=== PATIENT | female | born 1990 | race Caucasian/White ===

== ENCOUNTER → 2018-02-22 11:45 | Outpatient (CLI) | payer MEDICAID, SELFPAY ==
--- NOTE | 2018-02-22 11:53 | XR_ITS ---
XR chest 2V HISTORY: Cough and congestion, fever, smoker ITS.REASON: BRONCHITIS ORDERING PHYSICIAN: Tatiana Iverson PATIENT AGE: 27 years COMPARISON: None FINDINGS: The cardiomediastinal silhouette and pulmonary vascularity are within normal limits. No lobar consolidation or collapse. On the lateral view there is an 8 mm nodular opacity overlying the injury aspect of the heart not readily. On the frontal view. Possibly in the left hilar region. There is hyperinflation with prominent anterior clear space. No acute bony anomalies. IMPRESSION: Hyperinflation with prominent anterior clear space consistent with small airway disease which may be seen with bronchitis or asthma or smoking related lung disease. 8 mm nodular opacity overlies the intraaspect of the heart indeterminate. Consider follow-up to confirm stability. Unenhanced CT may better characterize.
== END ==
PROVIDERS: PCP Nurse Practitioner Family; Visit Provider Nurse Practitioner Family
DX: J20.9 Acute bronchitis, unspecified (principal)
CPT/HCPCS: 71046

== ENCOUNTER 2022-09-24 18:12 | Emergency (ER) | payer MEDICAID, SELFPAY ==
[2022-09-24 18:14] VITALS: BP 136/80; PULSE 108; RESP 18; TEMP 37; O2SAT 100; BMI 21.4
[2022-09-24 19:00] VITALS: BP 121/52; PULSE 100; O2SAT 99
--- NOTE | 2022-09-24 19:43 | HMH.EDGENADL ---
Discharge Plan Disposition Patient Disposition: Home, Self-Care Condition: Good Prescriptions Prescriptions: New cephalexin 500 mg capsule 500 mg PO Q6H Qty: 40 0RF ibuprofen 600 mg tablet 600 mg PO Q6H PRN (Reason: moderate pain ) Qty: 20 0RF fluconazole [Diflucan] 150 mg tablet 150 mg PO DAILY Qty: 1 0RF Rx Instructions: administer on day 1 of therapy No Action amoxicillin-pot clavulanate 1 EACH tablet 1 tab PO Q12H Qty: 20 0RF Referrals Follow up/Referrals: Tatiana Iverson [Primary Care Provider] - See instructions Activity Restrictions/Add. Instructions Additional Instructions/Restrictions: Clean wound daily with soap and water, apply Neosporin and bandage. Once wound begins to heal and is no longer moist, you can discontinue dressings. Follow-up with primary care provider within 1 week for recheck. Return emergency department if the wound is worsening, swelling, red streaks, or fever. Clinical Impressions Clinical Impression: Brown recluse spider bite Instructions Patient Instructions: DI for Spider Bites Discharge ED Provider: Nimesh Howard General Adult HPI General Chief complaint: Wound/Laceration Stated complaint: bump on left hand Time Seen by Provider: 09/24/22 19:37 Mode of Arrival: Ambulatory Source of Information: Patient Limitations: No Limitations Description of Symptoms (Recalled from ER Triage Doc. by RN): PT REPORTS BITE TO LEFT HAND. BLISTERED AREA TO LEFT HAND/THUMB X 4 DAYS History of Present Illness HPI narrative: States that 4 days ago she developed a sore on her left hand in the region of the metacarpal of the thumb. Initially she said it look like a plantars wart with some black specks in it. It then developed a blister and then the blister ruptured and now she has an ulcerated area. She has pain that radiates up her arm. No fever. She suspects she got bit by a brown recluse spider, but did not see anything bite her. Tetanus immunization is up-to-date, 2 months ago. No chronic medical problems. Related Data Previous Rx's Medication Instructions Recorded amoxicillin 875 mg-potassium 1 tab PO Q12H #20 tabs 07/19/18 clavulanate 125 mg tablet cephalexin 500 mg capsule 500 mg PO Q6H #40 caps 09/24/22 fluconazole 150 mg tablet 150 mg PO DAILY for yeast 09/24/22 (Diflucan) infection 1 dose #1 tab ibuprofen 600 mg tablet 600 mg PO Q6H PRN moderate pain 09/24/22 #20 tabs Allergies Allergy/AdvReac Type Severity Reaction Status Date / Time latex Allergy Unknown Verified 07/19/18 17:26 [facility] Disclaimer: The information contained in this section may have been updated after the patient was seen, as this information can be updated by other users. Social History Smoking Status: Current every day smoker tobacco type: cigarettes alcohol intake: never Travel in the last 8 weeks: None ROS Obtained: Yes Systems reviewed as appropriate & no additional complaints except as documented Constitutional Constitutional: Denies fever(s) and Denies weakness Musculoskeletal Musculoskeletal: Denies numbness Integumentary/Breasts Skin/Breast: Reports as per HPI and Reports wounds Neurologic Neurologic: Denies numbness and Denies weakness Physical Exam General General appearance: alert and in no apparent distress Chest Chest inspection: Present normal inspection and symmetric chest wall rise Respiratory Respiratory exam: Absent respiratory distress Cardiovascular Cardiovascular exam: Present regular rate Expanded Upper Extremity Exam Left: Hand L/R back image: 1. 2.5 cm diameter partial-thickness ulceration with ruptured vesicle tissue present. Serous drainage. No purulence or odor. No abscess. No surrounding cellulitis. No lymphangitis. No deep structure exposure. Neurological Exam Neurological exam: Present alert and oriented X3 Psychiatric Psychiatric exam: Present normal affect and normal mood Skin Skin exa
[2022-09-24 19:55] VITALS: BP 120/55; PULSE 100; RESP 18; TEMP 36.6; O2SAT 98
== END 2022-09-24 20:01 | disposition home or self-care (01) ==
PROVIDERS: Emergency Provider Emergency Medicine; PCP Nurse Practitioner Family
DX: T63.331A Toxic effect of venom of brown recluse spider, accidental (unintentional), initial encounter (principal); F17.210 Nicotine dependence, cigarettes, uncomplicated; Z79.1 Long term (current) use of non-steroidal anti-inflammatories (NSAID); Z79.899 Other long term (current) drug therapy
CPT/HCPCS: 99283

== ENCOUNTER 2023-09-19 10:48 | Emergency (ER) | payer MEDICAID, SELFPAY ==
[2023-09-19 12:00] VITALS: BP 124/68; PULSE 67; RESP 18; TEMP 37.2; O2SAT 98; BMI 25.7
[2023-09-19 12:33] LABS: UTC Influenza A Antigen Negative (Negative); UTC Influenza B Antigen Negative (Negative)
--- NOTE | 2023-09-19 12:33 | EXP.UTC ---
Discharge Plan Disposition Patient Disposition: Home, Self-Care Condition: Good Prescriptions Prescriptions: New ondansetron 4 mg tablet,disintegrating 4 mg PO Q8H PRN (Reason: nausea and vomiting) Qty: 7 0RF Referrals Follow up/Referrals: Tatiana Iverson [Primary Care Provider] - See instructions Activity Restrictions/Add. Instructions Additional Instructions/Restrictions: Monitor temperature. Seek treatment if fever develops. Follow-up immediately if new or worse symptoms worsen or no noticeable improvement over 48 hours. Increase fluids such as water, Gatorade, Powerade, juice or Pedialyte with limited formula/dietary in children No food is okay as long as you are drinking. Once ready to eat start bland such as bananas, rice, applesauce, toast. Contagious until no diarrhea, vomiting, fever times 48 hours without medication Avoid antidiarrheals unless told otherwise. Best to let the virus run its course. Follow-up immediately for new or worsening symptoms or no noticeable improvement over the next 48 hours. Clinical Impressions Clinical Impression: Nausea & vomiting Qualifiers: Vomiting type: unspecified Qualified Code(s): R11.2 - Nausea with vomiting, unspecified Diarrhea Qualifiers: Diarrhea type: unspecified type Qualified Code(s): R19.7 - Diarrhea, unspecified Stand Alone Forms Stand Alone Forms: Work/School Release Instructions Patient Instructions: DI for Nausea -- Adult, DI for Vomiting -- Adult Discharge ED Provider: Lani ([facility])Iván [facility] [place] HPI General Stated complaint: vomiting,diarrhea,101 fever Mode of Arrival: Ambulatory Source of Information: Patient Limitations: No Limitations Time Seen by Provider: 09/19/23 12:33 Description of Symptoms (Recalled from Triage Doc. by RN): vomiting, diarrhea, cough, and LONG HEENT Symptoms (Recalled from RN notes): Yes Resp Symptoms (Recalled from RN notes): No Skin Symptoms (Recalled from RN notes): No MS Symptoms (Recalled from RN notes): No Functional Status (Recalled from RN notes): n/a History of Present Illness Provider Complaint: 33 yr old female presents for vomiting, diarrhea, cough, and LOGN Related Data Previous Rx's Medication Instructions Recorded ondansetron 4 mg disintegrating 4 mg PO Q8H PRN nausea and 09/19/23 tablet vomiting #7 tabs Allergies Allergy/AdvReac Type Severity Reaction Status Date / Time latex Allergy Unknown Verified 09/19/23 12:25 Worker's Comp Is this a Worker's Comp case?: No [facility] Disclaimer: The information contained in this section may have been updated after the patient was seen, as this information can be updated by other users. Social History , [employer]) Smoking Status: Current every day smoker tobacco type: cigarettes alcohol intake: never current occupational status: student Travel in the last 8 weeks: None ROS Obtained: Yes All systems reviewed & no additional complaints except as documented Constitutional Constitutional: Reports system reviewed and no additional complaints, except as documented and Reports as per HPI Eyes Eyes: Reports system reviewed and no additional complaints, except as documented ENT Ears, Nose, Mouth, and Throat: Reports system reviewed and no additional complaints, except as documented Cardiovascular Cardiovascular: Reports system reviewed and no additional complaints, except as documented Respiratory Respiratory: Reports system reviewed and no additional complaints, except as documented and Reports as per HPI Gastrointestinal Gastrointestingal: Reports system reviewed and no additional complaints, except as documented, as per HPI, diarrhea, nausea and vomiting Neurologic Neurologic: Reports system reviewed and no additional complaints, except as documented Endocrine Endocrine: Reports system reviewed and no additional complaints, except as documented Hematologic/Lymphatic Henatologic/Lymphatic: Reports sys
[2023-09-19 12:47] VITALS: BP 124/68; PULSE 67; RESP 18; TEMP 37.2; O2SAT 98
== END 2023-09-19 12:47 | disposition home or self-care (01) ==
PROVIDERS: Emergency Provider Nurse Practitioner Family; PCP Nurse Practitioner Family
DX: R51.9 Headache, unspecified (principal); R11.2 Nausea with vomiting, unspecified; R50.9 Fever, unspecified; R19.7 Diarrhea, unspecified; R05.9 Cough, unspecified; F17.210 Nicotine dependence, cigarettes, uncomplicated
CPT/HCPCS: 87804; 99204; 99212; G0463

== ENCOUNTER 2024-04-04 13:25 | Emergency (ER) | payer MEDICAID, SELFPAY ==
[2024-04-04 13:35] VITALS: BP 124/75; PULSE 66; RESP 18; TEMP 36.9; O2SAT 98; BMI 23.0
--- NOTE | 2024-04-04 13:45 | US_ITS ---
FINAL REPORT CLINICAL HISTORY: KNOTS (2) TO RIGHT [place] AREA FINDINGS: Limited sonographic images of the right carol[place] were obtained. The subcutaneous tissues appear mildly indurated and edematous. No mass or focal fluid collection identified. IMPRESSION: Nonspecific finding is as above. Reviewed, Interpreted and Dictated by Franklin Winston MD Transcribed by Maya Malhotra Authenticated and [facility]
--- NOTE | 2024-04-04 13:54 | ED_ITS ---
Discharge Plan Disposition Patient Disposition: Home, Self-Care Condition: Good Prescriptions Prescriptions: New amoxicillin 875 mg tablet 875 mg PO Q12H Qty: 20 0RF No Action cetirizine 10 mg tablet 10 mg PO DAILY Patient Comments: Take 1 tablet every day by oral route for 90 days. trazodone 150 mg tablet 150 mg PO HS Patient Comments: Take 1 tablet every day by oral route at bedtime for 90 days. buspirone 7.5 mg tablet 7.5 mg PO DAILY Patient Comments: Take 1 tablet every day by oral route for 90 days. omeprazole 20 mg capsule,delayed release(DR/EC) 20 mg PO DAILY Patient Comments: Take 1 capsule every day by oral route before meal(s) for 90 days. fluticasone propionate 50 mcg/actuation spray,suspension 1 spray INTRANASAL DAILY Patient Comments: instill 1 spray into each nostril once daily bupropion HCl 150 mg tablet extended release 24 hr 150 mg PO DAILY Patient Comments: Take 1 tablet every day by oral route for 90 days. Sublocade 300 mg/1.5 mL solution, extended rel syringe 100 mg SQ MONTHLY Referrals Follow up/Referrals: Tomeka Cheatham APRN [Primary Care Provider] - See instructions Activity Restrictions/Add. Instructions Additional Instructions/Restrictions: Drink plenty of fluids. Take ibuprofen for pain or fever. Take the medications as directed. Follow up with your regular doctor. GO TO THE ER FOR ANY WORSENING SYMPTOMS Clinical Impressions Clinical Impression: Erythema nodosum Instructions Patient Instructions: Erythema Nodosum, DI for Erythema Nodosum Discharge ED Provider: Nura Huizar [facility] General Stated complaint: painful knots on right leg Mode of Arrival: Ambulatory Source of Information: Patient Limitations: No Limitations Time Seen by Provider: 04/04/24 13:45 Description of Symptoms (Recalled from Triage Doc. by RN): PATIENT C/O 2 PAINFUL KNOTS TO RIGHT LOWER LEG THAT STARTED 3 WEEKS AGO. SHE STATES PAIN HAS GOTTEN WORSE AND IS WORSE WITH WEIGHT BEARING. NO KNOWN INJURY. NO KNOWN FEVERS. ROM TO RIGHT LEG AND FOOT WNL. PATIENT STATES SHE SAW HER PCP WHO OBTAINED X-RAYS BUT NO FURTHER WORKUP. HEENT Symptoms (Recalled from RN notes): No Resp Symptoms (Recalled from RN notes): No Skin Symptoms (Recalled from RN notes): No MS Symptoms (Recalled from RN notes): Yes Functional Status (Recalled from RN notes): WNL History of Present Illness Provider Complaint: She states that for the past 3 weeks she has had tender knots coming up around her right carolina bone on her lower leg. Related Data Home Medications Medication Instructions Recorded Confirmed buprenorphine 300 mg/1.5 mL 100 mg SQ MONTHLY 04/04/24 04/04/24 solution,exten.rel.subcutaneous syringe (Sublocade) bupropion HCl 150 mg 24 hr tablet, 150 mg PO DAILY 04/04/24 04/04/24 extended release buspirone 7.5 mg tablet 7.5 mg PO DAILY 04/04/24 04/04/24 cetirizine 10 mg tablet 10 mg PO DAILY 04/04/24 04/04/24 fluticasone propionate 50 1 spray intranasal DAILY 04/04/24 04/04/24 mcg/actuation nasal spray,suspension omeprazole 20 mg capsule,delayed 20 mg PO DAILY 04/04/24 04/04/24 release trazodone 150 mg tablet 150 mg PO HS 04/04/24 04/04/24 Previous Rx's Medication Instructions Recorded amoxicillin 875 mg tablet 875 mg PO Q12H #20 tabs 04/04/24 Allergies Allergy/AdvReac Type Severity Reaction Status Date / Time latex Allergy Unknown Verified 09/19/23 12:25 Worker's Comp Is this a Worker's Comp case?: No [facility] Disclaimer: The information contained in this section may have been updated after the patient was seen, as this information can be updated by other users. Medical History (Updated 04/04/24 @ 15:12 by Nura Huizar APRN) Depression Anxiety Surgical History (Updated 04/04/24 @ 13:44 by Leila Smith RN) History of tonsillectomy History of appendectomy History of tubal ligation Social History (Updated 09/19/23 @ 12:41 by Iván Garibay ([facility])BANDAR) Smoking Status: Current every day smoker tobacco type: cigarettes alcohol intake: never current occupational status: student Travel in the last 8 weeks: None ROS Obtained: Yes All systems reviewed & no additional complaints except as documented Constitutional Constitutional: Denies chills and Denies fever(s) Eyes Eyes: Denies eye discharge ENT Ears, Nose, Mouth, and Throat: Denies dizziness, Denies otalgia and Denies sore throat Cardiovascular Cardiovascular: Denies chest pain Respiratory Respiratory: Denies shortness of breath, Denies chest congestion, Denies cough, Denies stridor and Denies wheezing Gastrointestinal Gastrointestingal: Denies nausea or vomiting Musculoskeletal Musculoskeletal: Reports system reviewed and no additional complaints, except as documented and Denies arthralgias Integumentary/Breasts Skin/Breast: Reports as per HPI Neurologic Neurologic: Denies dizziness and Denies paresthesias Allergic/Immunologic Allergic/Immunologic: Denies wheezing Physical Exam General General appearance: alert and in no apparent distress Head Head exam: atraumatic, normocephalic and normal inspection Eye Eye exam: Present normal appearance, PERRL and EOMI ENT ENT exam: Present normal exam, normal oropharynx, mucous membranes moist, TM's normal bilaterally and normal external ear exam Neck Neck exam: Present normal inspection, full ROM and trachea midline; Absent meningismus or lymphadenopathy Chest Chest inspection: Present normal inspection and symmetric chest wall rise; Absent tenderness Respiratory Respiratory exam: Present normal lung sounds bilaterally; Absent respiratory distress Cardiovascular Cardiovascular exam: Present regular rate and normal rhythm; Absent JVD Abdominal Exam Abdominal exam: Present soft and normal bowel sounds; Absent distention, tenderness or guarding Extremities Exam Extremities exam: Present normal capillary refill; Absent calf tenderness Expanded Lower Extremity Exam Right: Knee exam: Present normal inspection, full ROM and knee extension intact; Absent tenderness Lower leg exam: Present full ROM and Achilles tendon intact; Absent tenderness, swelling, abrasion, laceration, ecchymosis, deformity, crepitus, dislocation, erythema, palpable cord or Homans' sign Ankle exam: Present normal inspection and full ROM; Absent tenderness Foot/toe exam: Present normal inspection and full ROM; Absent tenderness Neurovascular/Tendon exam: Present normal capillary refill, normal 2-point discrimination and normal fine/light touch; Absent pulse deficit, motor deficit, sensory deficit, tendon deficit, extremity cold to touch or pallor Gait: observed and normal Back Exam Back exam: Present normal inspection; Absent tenderness Neurological Exam Neurological exam: Present alert and oriented X3 Psychiatric Psychiatric exam: Present normal affect and normal mood Skin Skin exam: Present warm, dry, intact and normal color Lymphatic Lymphatic Findings: no adenopathy Medical Decision Making Medical Records Medical records reviewed: No I reviewed the patient's medical records. Stew Inquiry Pt receiving controlled substance: No Vital Signs: 04/04/24 13:35 Temperature 98.4 F Temperature Source Oral Pulse Rate [Left Brachial] 66 Respiratory Rate 18 Blood Pressure [Left Arm] 124/75 Blood Pressure Mean [Left Arm] 91 Blood Pressure Source [Left Arm] Automatic Cuff Blood Pressure Position [Left Arm] Sitting 02 Sat by Pulse Oximetry 98 Oxygen Delivery Method Room Air Lab Data 04/04/24 14:00 04/04/24 14:00 Orders (Tests/Meds): ORDERS Category Date Time Status US extremity RT limited Stat Exams 04/04/24 13:45 Ordered Antistreptolysin O Ab Stat Lab 04/04/24 13:49 Ordered Basic Metabolic Panel Stat Lab 04/04/24 13:49 Ordered Complete Blood Count Auto Diff Stat Lab 04/04/24 13:49 Ordered Erythrocyte Sedimentation Rate Stat Lab 04/04/24 13:49 Ordered
[2024-04-04 14:38] LABS: Blood Urea Nitrogen 15 mg/dl (7-17); Calcium 9.4 mg/dl (8.4-10.2); Carbon Dioxide 27 mmol/L (22.0-30.0); Chloride 102 mmol/L (98-107); Creatinine Clearance Estimated 91 mL/min (50-200); Estimated Glomerular Filt Rate 82 ml/min (>60); GFR (African American) 99 ML/MIN (>60); Glucose 90 mg/dl (74-100); Sodium 137 mmol/L (136-145)
[2024-04-04 14:51] LABS: Basophils % 0.6 % (0.1-2.0); Eosinophils # 0.1 K/mm3 (0.0-0.4); Eosinophils % 2.9 % (0.1-12.0); Hematocrit 37.9 % (37.0-47.0); Hemoglobin 13.2 g/dL (12.2-16.2); Lymphocytes # 1.6 K/mm3 (0.7-4.5); Lymphocytes % 33.1 % (10-50); Mean Corpuscular Hemoglobin 30.9 pg (27.0-31.2); Mean Corpuscular Volume 88.3 fl (81-99); Mean Platelet Volume 8.3 fl (7.4-10.4); Monocytes # 0.3 K/mm3 (0.1-1.0); Monocytes % 5.1 % (1.7-9.3); Neutrophils # 2.8 K/mm3 (1.8-7.8); Neutrophils % 58.3 % (37.0-80.0); Platelet Count 161 K/mm3 (142-424); Red Blood Count 4.29 M/mm3 (4.20-5.40); Red Cell Distribution Width 13.4 % (11.5-17.5); White Blood Count 4.9 K/mm3 (4.8-10.8)
[2024-04-04 15:15] VITALS: BP 124/75; PULSE 66; RESP 18; TEMP 36.9; O2SAT 98
[2024-04-04 16:18] LABS: Erythrocyte Sedimentation Rate 100 mm/hr (0-20)
[2024-04-06 07:49] LABS: Antistreptolysin O Ab 497.6 IU/mL (0.0-200.0)
--- NOTE | 2024-04-06 08:43 | PC.NURSE ---
Reviewed antistrepolysin results which is positive. She was treated with amoxil already. No further action required.
== END 2024-04-04 15:17 | disposition home or self-care (01) ==
PROVIDERS: Emergency Provider Nurse Practitioner Family; PCP Nurse Practitioner
DX: L52 Erythema nodosum (principal); R76.0 Raised antibody titer; M79.661 Pain in right lower leg
CPT/HCPCS: 76882; 80048; 85025; 85651; 86060; 99212; 99214; G0463